=== PATIENT | male | born 1980 | race Hispanic/Latino ===

== ENCOUNTER 2017-11-14 15:48 | Inpatient (IN) | payer BC ==
[~2017-11-14] VITALS: Ht 175.3 cm; Wt 70.3 kg
[~2017-11-14 15:48] MED LIST: [UNRECOGNIZED DRUG - OTHER]
[2017-11-14 17:44] LABS: BASOPHILS % 0.4 % (0.0-1.0); EOSINOPHILS # (AUTO) 0.2 (0.0-0.4); EOSINOPHILS % 2.4 % (0.0-6.0); HEMATOCRIT 41.8 % (38.2-49.6); HEMOGLOBIN 14.3 g/dL (14.0-18.0); LYMPHOCYTES # (AUTO) 2.8 (1.0-3.2); LYMPHOCYTES % 37.3 % (18.0-39.1); MEAN CORPUSCULAR HEMOGLOBIN 27.3 pg (28-32); MEAN CORPUSCULAR HGB CONC 34.2 g/dL (31-35); MEAN CORPUSCULAR VOLUME 79.8 fL (81-99); MONOCYTES # (AUTO) 0.6 (0.2-0.8); MONOCYTES % 8.6 % (4.4-11.3); NEUTROPHILS # (AUTO) 3.8 (2.1-6.9); PLATELET COUNT 319 x10e3/uL (140-360); RED BLOOD COUNT 5.24 x10e6/uL (4.3-5.7); RED CELL DISTRIBUTION WIDTH 12.2 % (11.7-14.4)
[2017-11-14 18:00] LABS: ALANINE AMINOTRANSFERASE 256 IU/L (0-55); ALBUMIN/GLOBULIN RATIO 0.6 (0.8-2.0); ALKALINE PHOSPHATASE 275 IU/L (40-150); BLOOD UREA NITROGEN 14 mg/dL (7-26); BUN/CREATININE RATIO 14 (6-25); CALCIUM 9.7 mg/dL (8.4-10.2); CARBON DIOXIDE 27 mmol/L (22-29); CHLORIDE 105 mmol/L (98-107); EST GLOMERULAR FILTRATION RATE > 60 ML/MIN (60-); GLUCOSE 166 mg/dL (74-118); SODIUM 140 mmol/L (136-145)
--- NOTE | 2017-11-14 18:13 | Diagnostic Imaging Report ---
PROCEDURE:X-RAY RIGHT FOOT, COMPLETE COMPARISON:None. INDICATIONS:RIGHT FOURTH TOE INFECTION FINDINGS: Normal mineralization. No acute displaced fracture or dislocation. Mild cortical irregularity at the tuft of the distal phalanx of the fourth toe with moderate soft tissue swelling and distal fourth toe soft tissue lucency.. Other bony structures and cortical surfaces are intact. Vascular calcifications. No osteochondral lesion. CONCLUSION: Findings likely represent osteomyelitis involving the tuft of the distal phalanx of the fourth toe. Associated soft tissue swelling. Distal fourth toe soft tissue lucency may represent soft tissue gas. Kee Nazario M.D. Dictated by: Kee Nazario M.D. on 11/14/2017 at 18:14 Electronically approved by: Kee Nazario M.D. on 11/14/2017 at 18:14
[2017-11-14] MEDS ORDERED: HYDROCODONE/APAP 5MG-325MG TAB PO PRN (19:15)
[2017-11-14] MEDS ORDERED: MORPHINE SULFATE 2 MG/ML SYR IV PRN (19:15)
[2017-11-14] MEDS ORDERED: DEXTROSE 50% SYRINGE 50 ML IV PRN (19:15)
--- OUTSIDE RECORDS SUMMARY | 2017-11-14 20:42 | XMS REPORT ---
Author Author [facility] Address Unknown Phone Unavailable Care Team Providers Care Mail Machine Operator Name Role Phone NLEY FORREST Unavailable Unavailable Problems This patient has no known problems. Allergies, Adverse Reactions, Alerts This patient has no known allergies or adverse reactions. Medications This patient has no known medications. Results Test Description Test Time Test Comments Text Results Atomic Results Result Comments FOOT RIGHT COMPLETE [place] [address] Patient Name: MILTON HECK JR MR #: [id number] : 1980 Age/Sex: 37/M Req #: [id number] Adm Physician: Ordered by: VINNY JENNINGS GLOVE PRINTER Report # : [id number] Location: ER Room/Bed: Procedure: 0501 [id number] DX/FOOT RIGHT COMPLETE Exam Date: 11/14/17 Exam Time: 1711 REPORT STATUS: Signed PROCEDURE: X-RAY RIGHT FOOT, COMPLETE COMPARISON: None. INDICATIONS: RIGHT FOURTH TOE INFECTION FINDINGS: Normal mineralization. No acute displaced fracture or dislocation. Mild cortical irregularity at the tuft of the distal phalanx of the fourth toe with moderate soft tissue swelling and distal fourth toe soft tissue lucency.. Other bony structures and cortical surfaces are intact. Vascular calcifications. No osteochondral lesion. CONCLUSION: Findings likely represent osteomyelitis involving the tuft of the distal phalanx of the fourth toe. Associated soft tissue swelling. Distal fourth toe soft tissue lucency may represent soft tissue gas. Misa Nazario M.D. Dictated by: Misa Nazario M.D. on 11/14/2017 at 18:14 Electronically approved by: Misa Nazario M.D. on 11/14/2017 at 18:14 Dictated By: MISA NAZARIO MD 13 Transcribed By: JOHN on 11/14/171813 COPY TO: VINNY JENNINGS NP
[2017-11-14] MEDS: INSULIN REGULAR, HUMAN 100 UNIT/1 ML 3ML VIAL SQ SCH (20:50)
[2017-11-14] MEDS: VANCOMYCIN 1GM/NS 250 ML 250 ML IV SCH (20:50)
[2017-11-14] MEDS: PIPER-TAZ 3.375 GM 50 ML IV SCH (22:23)
[2017-11-15] MEDS: PIPER-TAZ 3.375 GM 50 ML IV SCH ×2 (05:40→11:40)
[2017-11-15] MEDS ORDERED: HUMALOG100 UNIT/1 SQ (07:04)
[2017-11-15] MEDS ORDERED: TOUJEO SQ (07:04)
[2017-11-15] MEDS: FAMOTIDINE 20 MG TAB PO SCH ×2 (07:47→17:25)
[2017-11-15] MEDS: INSULIN REGULAR, HUMAN 100 UNIT/1 ML 3ML VIAL SQ SCH ×2 (07:47→11:35)
--- NOTE | 2017-11-15 07:53 | History and Physical ---
PRIMARY CARE PHYSICIAN: Dr. Stapleton HEMATOLOGY NURSE: Dr. Rodriguez CHIEF COMPLAINT: Right foot 4th toe swelling, pain and redness. 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 Sent to the hospital by Dr. Rodriguez. X-rays shows signs of osteomyelitis. He is admitted for further evaluation and management. 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 Could be strep osteomyelitis. PAST SURGICAL HISTORY: Left foot 4th digit amputation, status post osteomyelitis. He has an insulin pump. ALLERGIES: PER ELECTRONIC MEDICAL RECORD. FAMILY HISTORY: Diabetes. SOCIAL HISTORY: Patient is . He has 2 children. Denies any alcohol or cigarettes. 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 MEDICATIONS: Per electronic medical records. REVIEW OF SYSTEMS: Denies any dizziness or chest pain. PHYSICAL EXAMINATION VITAL SIGNS: Reviewed. GENERAL: A tired-appearing man resting in bed. HEENT: Anicteric. Pupils respond to light. No oral lesions. CARDIOVASCULAR: Normal S1 and S2. LUNGS: Moderate breath sounds. ABDOMEN: Soft, nontender and nondistended. EXTREMITIES: He has a left foot with 4th digit absent. He has a right foot with 4th digit edematous, tender, erythematous. SKIN: Dry. PSYCHIATRIC: Flat affect. NEUROLOGIC: Alert and oriented times 3. Moving all extremities. LABS: Reviewed. MEDICATIONS: Reviewed. ASSESSMENT AND PLAN: A 37-year-old man with: 1. Osteomyelitis of the right foot, 4th digit: He has elevated sed rate. Will start him on intravenous vancomycin and intravenous Zosyn. Dr. Rodriguez has been consulted. Will consult infectious disease. 2. Diabetes mellitus, type 1: He has an insulin pump. Will consult endocrinology. 3. Hyperlipidemia: Check lipid panel. 4. Foot pain: P.r.n. pain medications. 5. Transaminitis: Will obtain hepatitis panel. 6. Prophylaxis: Will use Lovenox and Pepcid. 7. Disposition: Follow up podiatry recommendations. Endocrinology consultation. Job#: [id number] RI
[2017-11-15] MEDS ORDERED: VANCOMYCIN 1GM/NS 250 ML 250 ML IV SCH (09:00)
[2017-11-15] MEDS: VANCOMYCIN 1GM/NS 250 ML 250 ML IV SCH ×2 (09:05→21:45)
[2017-11-15 09:23] LABS: CHOL/HDL RATIO 4.1 (3.9-4.7)
--- NOTE | 2017-11-15 09:55 | Consultation ---
DATE OF CONSULTATION: November 15, 2017 REASON FOR CONSULTATION: Cellulitis and possible osteomyelitis of 4th digit, right foot. HISTORY OF PRESENT ILLNESS: This is a pleasant, 37-year-old white male, who is very known to me from being my patient for 15-plus years, who presented to the office several weeks ago with a very swollen 4th toe, right foot. He had an ulceration to the distal aspect of the toe and it starting getting progressively worse. Patient started having some fever and chills. It was decided to be admitted for IV antibiotics and local wound care to try to salvage the toe. Since the patient has been in the hospital getting IV antibiotics, he has been feeling somewhat better, denying any history of fevers, chills and nausea. PAST MEDICAL HISTORY: Remarkable for insulin-dependent diabetes. SURGICAL HISTORY: Remarkable for amputation of 4th toe, left foot, and cholecystectomy. ALLERGIES: PATIENT DENIES. SOCIAL HISTORY: Denies any smoking, drinking or recreational drug use. Lives with his , has 2 kids. FAMILY HISTORY: Remarkable for diabetes. REVIEW OF SYSTEMS CARDIAC: Denies any palpitations or arrhythmias. RESPIRATORY: Denies any shortness of breath or productive cough. GASTROINTESTINAL: Denies any diarrhea or constipation. GENITOURINARY: Denies any problems voiding. VITALS: Afebrile. Pulse rate 95. Respirations 14. Blood pressure 121/87. O2 saturation 100%. LABS: Noted. White blood cell count 7.4, hemoglobin 14.3 with a platelet count of 319. PODIATRIC PHYSICAL EXAMINATION : Reveals the following: VASCULAR: Pedal pulses of both the dorsalis pedis and posterior tibial arteries are palpable. NEUROLOGICAL: A complete loss of protective sensation when utilizing [place]-Fer 5.07 monofilament wire. MUSCULOSKELETAL: Examination shows muscle mass to be symmetrical and muscle strength to be 5/5 to all muscle groups. DERMATOLOGICAL: Examination reveals an ascending streak to the dorsal aspect of the right lower extremity. Ulceration to the distal aspect of the 4th toe, right foot, with an ulcer to the dorsal aspect at the distal interphalangeal joint. X-RAYS: Possibly positive with osteomyelitic changes. ASSESSMENT: Grade 2/3 ulceration of right foot, cellulitis, possible osteomyelitis with diabetic neuropathy. PLAN: Will continue IV antibiotics and local wound care. Will continue to observe the toe. Patient understands if not responsive, he may need an amputation. Will treat conservatively for now. Job#: [id number] TOSIN
[2017-11-15 15:11] LABS: FREE T4 (FREE THYROXINE) 1.22 ng/dL (0.9-1.8); THYROID STIMULATING HORMONE 1.14 uIU/mL (0.350-4.940)
[2017-11-15] MEDS ORDERED: MORPHINE SULFATE 2 MG/ML SYR IV PRN (15:30)
[2017-11-15] MEDS ORDERED: HYDROCODONE/APAP 5MG-325MG TAB PO PRN (15:30)
--- NOTE | 2017-11-15 15:56 | Consultation ---
DATE OF CONSULTATION: November 15, 2017 INFECTIOUS DISEASE CONSULTATION ATTENDING PHYSICIAN: Dr. Rishi Tran REASON FOR CONSULTATION: Right toe osteomyelitis. Thank you, Dr. Tran, for asking me to see this patient. HISTORY: The patient is a 37-year-old man referred for right toe osteomyelitis. He presented to the emergency department with pain, redness and swelling of the right 4th toe. He denies fever and chills. He developed an ulcer of the right 4th toe about 2 weeks earlier. He wears tennis shoes and denies trauma. Plain x-ray of the right foot done in the emergency room showed mild cortical irregularity at the tuft of the distal phalanx of the 4th toe with moderate soft-tissue swelling and distal 4th toe soft-tissue swelling. PAST MEDICAL HISTORY: Diabetes mellitus type 1, hyperlipidemia, MRSA osteomyelitis of the right 3rd toe, and osteomyelitis of the left 4th toe. PAST SURGICAL HISTORY: Insulin pump placement and amputation of the left 4th toe. ALLERGIES: NO KNOWN DRUG ALLERGIES. MEDICATIONS: The current antibiotics are Zosyn 3.375 g IV piggyback q.6 h. and vancomycin 1 g IV piggyback q.12 h. IMMUNIZATIONS: The patient stated he received tetanus-diphtheria vaccine within 10 years. FAMILY HISTORY: Significant for diabetes mellitus. SOCIAL HISTORY: No alcohol or tobacco use. REVIEW OF SYSTEMS: As per history of present illness. The patient reports good pain control. PHYSICAL EXAMINATION GENERAL: No acute distress. VITAL SIGNS: T-max 98.7, pulse 95, respiratory rate 14, blood pressure 121/87. Weight 155 pounds. HEENT: Normocephalic. There is no icterus or injection of conjunctivae. There is no ear or nasal discharge. Moist oral mucosa. No pharyngeal erythema or exudate. NECK: Supple. No meningismus or lymphadenopathy. LUNGS: Clear to auscultation bilaterally. HEART: Normal S1 and S2, regular. ABDOMEN: Soft and nontender. EXTREMITIES: There is edema of the right 4th toe with ulcer at the distal phalanx. There are redness and serosanguineous discharge. The left 4th toe is absent. There is no edema, clubbing or cyanosis of the rest of the extremities. The dorsalis pedis and posterior tibial pulses are weak to palpation in both feet. SKIN: As per extremities. NUCLEAR MEDICINE TECHNICIAN: Awake, alert and oriented to person, place and time. There is decreased sensation on monofilament examination of the feet bilaterally. Nonfocal. LABORATORY: WBC 7470, hemoglobin 14.3, platelets 319,000, neutrophils 51, lymphs 37.3, monos 8.6, eosinophil 2.4, basophils 0.4. BUN 14, creatinine 1. AST 126, ALT 256, alk phos 275, total bilirubin 0.9. Hemoglobin A1c 13.1. Blood culture is pending. Wound culture is also pending. ESR is 63. IMPRESSION 1. Probable contiguous osteomyelitis of the distal phalanx of the right 4th toe complicating diabetic foot ulcer present on admission. 2. Transaminitis present on admission. The etiology is unclear at this time. 3. Diabetes mellitus, type 1, uncontrolled. PLAN 1. Check MRI of the right foot and arterial Doppler ultrasound of the right lower extremity. Also check C-reactive protein. 2. Pain control per internal medicine. 3. Podiatry input has been noted. Job#: [id number]
[2017-11-15 16:00] VITALS: BP 152/102
--- NOTE | 2017-11-15 16:03 | Consultation ---
DATE OF CONSULTATION: November 15, 2017 ENDOCRINE CONSULTATION This is a patient of Dr. Tran. Thank you very much for referring this patient. This is a 37-year-old gentleman who is referred to me for evaluation of diabetes mellitus. Patient reportedly has a known case of type 1 diabetes for almost 20 years and is being followed by Dr. Spencer Stapleton in the medical center. He came to the hospital because of the nonhealing ulcer of the right toe for possible osteomyelitis. Patient tells me that he takes Toujeo about 50 units at bedtime and Humalog about 10 to 15 with each meal depending upon the blood sugars. His last hemoglobin A1c in the hospital was around 13.1. Patient has multiple complications from diabetes including severe diabetic sensorimotor neuropathy. The patient tells me he is a nonsmoker. PHYSICAL EXAMINATION: GENERAL: Today the patient is alert, awake, a little bit apprehensive. He is very agitated and sometimes he hesitates in answering all the questions about his history. VITALS: His heart rate is around 78, blood pressure 130/80 mmHg. HEENT: Examination essentially unremarkable. Thyroid is palpable. Clinically he is near euthyroid. CHEST: Bilateral vesicular breathing. He has mild bronchospasm. CARDIAC: First and second heart sounds. There is a 3rd, 4th heart sound. Ejection systolic murmur soft, grade 3/6. Patient has evidence of diabetic sensory neuropathy in both lower extremities and an ulcer of the right toe. CLINICAL IMPRESSION 1. Diabetes mellitus type 1 uncontrolled with complications. 2. Osteo right foot, right toe. PLAN: At this time is to do A hemoglobin A1c, thyroid function test, monitor his blood sugars and adjust insulin dose. Since we do not have the Toujeo in the hospital will put him on the Levemir for now and continue the basal and bolus insulin therapy. Thanks for referring this patient. I will be following this patient with you. Job#: [id number] RANJIT LEE
[2017-11-15 16:20] VITALS: BP 150/100
--- NOTE | 2017-11-15 16:41 | Diagnostic Imaging Report ---
TECHNIQUE: Magnetic resonance imaging of the RIGHT foot (forefoot) was performed WITHOUT injected contrast. HISTORY: Diabetic foot ulcer, worrisome for osteomyelitis, fourth digit, blister COMPARISON: None available. DISCUSSION: Bone: Mild bone marrow edema and decreased fatty marrow signal of the fourth middle and distal phalanges. The amount of bone marrow edema is relatively mild. Incidentally, focal sclerosis within both hallux sesamoids, may reflect mild chronic changes of previous avascular necrosis. Joints: Trace effusions of the first metatarsophalangeal joint and second metatarsophalangeal joint. Mild scattered degenerative changes, most notably the first metatarsophalangeal joint. Soft Tissues: Moderate nonspecific diffuse soft tissue edema. No drainable fluid collection. Apparent soft tissue defect at the distal aspect of the fourth toe. IMPRESSION: 1. Findings compatible with osteomyelitis involving the middle and distal phalanges of the fourth digit, consider chronic or acute on chronic osteomyelitis. 2. No soft tissue abscess. Signed by: Dr. Abhijit Vaz D.O., M.M.M. on 11/15/2017 4:38 PM
[2017-11-15] MEDS: ENOXAPARIN SOD INJ 40 MG/0.4 ML SYR SC SCH (17:25)
[2017-11-15] MEDS: PIPER-TAZ 3.375 GM 100 ML IV SCH (17:33)
[2017-11-15] MEDS: INSULIN LISPRO 100 UNIT/1 ML 3ML VIAL SQ SCH ×3 (17:34→21:45)
[2017-11-15 20:31] VITALS: BP 143/90
[2017-11-15] MEDS ORDERED: INSULIN DETEMIR 100 UNIT/ML PEN SQ SCH (21:00)
[2017-11-16] VITALS: BP 117/75
[2017-11-16] MEDS: PIPER-TAZ 3.375 GM 100 ML IV SCH ×5 (00:48→17:28)
[2017-11-16 06:44] LABS: ALANINE AMINOTRANSFERASE 174 IU/L (0-55); ALBUMIN 2.7 g/dL (3.5-5.0); ALBUMIN/GLOBULIN RATIO 0.7 (0.8-2.0); ALKALINE PHOSPHATASE 253 IU/L (40-150); ANION GAP 12.8 mmol/L (8-16); BLOOD UREA NITROGEN 20 mg/dL (7-26); BUN/CREATININE RATIO 16 (6-25); CALCIUM 9.4 mg/dL (8.4-10.2); CARBON DIOXIDE 29 mmol/L (22-29); CHLORIDE 104 mmol/L (98-107); CREATININE, SERUM 1.22 mg/dL (0.72-1.25); EST GLOMERULAR FILTRATION RATE > 60 ML/MIN (60-); GLUCOSE 316 mg/dL (74-118); POTASSIUM 4.8 mmol/L (3.5-5.1); SODIUM 141 mmol/L (136-145)
[2017-11-16 08:00] VITALS: BP 148/99
[2017-11-16] MEDS: FAMOTIDINE 20 MG TAB PO SCH ×2 (08:00→17:00)
[2017-11-16] MEDS: VANCOMYCIN 1GM/NS 250 ML 250 ML IV SCH ×2 (08:00→22:00)
[2017-11-16] MEDS: INSULIN LISPRO 100 UNIT/1 ML 3ML VIAL SQ SCH ×6 (08:00→21:15)
--- NOTE | 2017-11-16 08:36 | Progress Note ---
DATE: November 16, 2017 SUBJECTIVE: Patient doing better. Denies any history of fever, chills, nausea, vomiting. OBJECTIVE: VITAL SIGNS: Afebrile. Pulse rate 93, respiration 18, blood pressure 117/75, O2 saturation 96%. LABS: White blood cell count of 7.4. Still a very swollen fourth toe, right foot when compared to left, but getting better since he has been on IV antibiotics. Has drainage to distal aspect of the fourth digit, right foot. Some pus with minimal smell. Has an ulceration to the medial aspect of the fourth digit, left foot measuring less than 1 cm in diameter. ASSESSMENT: Possible osteomyelitis, cellulitis with grade 2 ulcerations. PLAN: Will continue IV antibiotics, continue to let the foot demarcate, seems to be getting better. Patient is aware still that there is a chance of possibly losing the toe. Will try to salvage. Job#: [id number]
--- NOTE | 2017-11-16 09:01 | Progress Note ---
DATE: November 16, 2017 TIME: 8:25 a.m. OVERNIGHT: No events. REVIEW OF SYSTEMS: Denies any dizziness. PHYSICAL EXAMINATION VITAL SIGNS: Reviewed. GENERAL: A tired-appearing man resting in bed. HEENT: Anicteric. CARDIOVASCULAR: Normal S1 and S2. LUNGS: Moderate breath sounds. ABDOMEN: Soft, nontender and nondistended. EXTREMITIES: Left foot 4th digit absent. Right foot 4th digit edematous, tender and erythematous. SKIN: Dry. PSYCHIATRIC: Flat affect. NEUROLOGICAL: Alert and oriented times 3. LABS: Reviewed. MEDICATIONS: Reviewed. ASSESSMENT: A 37-year-old man with: 1. Osteomyelitis of the right foot, 4th digit. 2. Diabetes mellitus, type 1. 3. Hyperlipidemia. 4. Foot pain. 5. Transaminitis. PLAN 1. Continue IV Zosyn and IV vancomycin. 2. Continue insulin regimen per endocrinology. 3. Continue pain control. 4. Continue Lovenox prophylactically. 5. Follow up cultures. Job#: [id number] PA
[2017-11-16 12:00] VITALS: BP 136/90
--- NOTE | 2017-11-16 12:57 | Cardiology Report ---
DATE OF STUDY: November 15, 2017 DOPPLER SCAN OF RIGHT LEG ARTERIES The right leg arteries were interrogated using the duplex scanning method. The waveforms were all biphasic and triphasic above the knee. In the posterior tibial artery and anterior tibial artery, the waveforms were monophasic and biphasic. Velocity was slightly increased in the mid right anterior tibial artery at 1.8 meters per second suggestive of stenosis. CONCLUSIONS 1. Possible moderate stenosis involving the mid portion of the right anterior tibial artery with biphasic and monophasic waveforms and velocity of 1.8 meters per second. 2. Possible mild stenosis involving the right anterior and posterior tibial arteries with waveforms predominantly biphasic and monophasic. 3. No evidence of significant disease in the right leg above the right knee. 4. The left leg was not studied. Job#: [id number] cc:KELLY NORMAN MD
[2017-11-16 16:00] VITALS: BP 139/85
[2017-11-16] MEDS ORDERED: INSULIN LISPRO 100 UNIT/1 ML 3ML VIAL SQ SCH (16:30)
[2017-11-16] MEDS: ENOXAPARIN SOD INJ 40 MG/0.4 ML SYR SC SCH (17:28)
[2017-11-16 20:00] VITALS: BP 149/103
[2017-11-16] MEDS ORDERED: INSULIN DETEMIR 100 UNIT/ML PEN SQ SCH (21:00)
[2017-11-17] VITALS (7 sets, daily range): BP systolic 101–126; BP diastolic 70–99
[2017-11-17] MEDS: PIPER-TAZ 3.375 GM 100 ML IV SCH ×4 (02:25→22:30)
--- NOTE | 2017-11-17 07:35 | Progress Note ---
DATE: November 17, 2017 SUBJECTIVE: Patient is doing somewhat better. Denies any issues of fever, chills, nausea, or vomiting. Decreased swelling to the right lower extremity. OBJECTIVE VITAL SIGNS: Afebrile, pulse rate 89, respirations 18, blood pressure 114/80, O2 saturation 97%. EXTREMITIES: Still some swelling noted to the right 4th toe, but getting better. Color is starting to be symmetrical to the adjacent toes. Still some moderate to severe swelling noted when compared to adjacent toes. Ulcerations to the distal aspect of the right great toe and dorsal aspect of the distal interphalangeal joint seem to be healing. ASSESSMENT: Possible osteomyelitis with grade 2/3 ulceration. PLAN: Will continue IV antibiotics for 2-3 more days. If the patient continues to improve, the patient will be discharged possibly on Monday. If no improvement, may end up needing amputation. Job#: [id number] ARABELLA
[2017-11-17] MEDS: INSULIN LISPRO 100 UNIT/1 ML 3ML VIAL SQ SCH ×7 (08:10→21:24)
[2017-11-17] MEDS: FAMOTIDINE 20 MG TAB PO SCH ×2 (08:10→17:07)
[2017-11-17] MEDS: VANCOMYCIN 1GM/NS 250 ML 250 ML IV SCH ×2 (08:10→21:14)
[2017-11-17] MEDS: ENOXAPARIN SOD INJ 40 MG/0.4 ML SYR SC SCH (17:07)
[2017-11-17] MEDS ORDERED: INSULIN DETEMIR 100 UNIT/ML PEN SQ SCH (21:00)
[2017-11-18] VITALS: BP 125/75
--- NOTE | 2017-11-18 00:13 | Progress Note ---
DATE: November 17, 2017 TIME: 7:15 a.m. OVERNIGHT: No events. REVIEW OF SYSTEMS: Denies any dizziness. PHYSICAL EXAMINATION: VITAL SIGNS: Reviewed. GENERAL APPEARANCE: Tired-appearing man resting in bed. HEENT: Anicteric. CARDIOVASCULAR: Normal S1 and S2. LUNGS: Moderate breath sounds. ABDOMEN: Soft, nontender, nondistended. EXTREMITIES: Right foot fourth digit edematous, but less compared to previously. Erythema is also improving. SKIN: Dry. PSYCHIATRIC: Flat affect. NEUROLOGICAL: Alert and oriented x3. LABS: Reviewed. MEDICATIONS: Reviewed. ASSESSMENT: A 37-year-old man. 1. Osteomyelitis to the fourth digit on the right foot. 2. Diabetes mellitus type 1. 3. Hyperlipidemia. 4. Foot pain. 5. Transaminitis. PLAN: 1. Continue IV antibiotics. 2. Continue insulin regimen per endocrinology. 3. Continue Lovenox prophylactically. 4. MRI of the foot does confirm osteomyelitis with Streptococcus viridans and coagulase-negative Staphylococcus. 5. Continue intravenous Zosyn. 6. Obtain labs tomorrow. 7. Hemoglobin A1c was 13.1 and LDL 104, triglyceride 154. 8. Vancomycin trough therapeutic at 11.8. Job#: [id number]
[2017-11-18] MEDS: PIPER-TAZ 3.375 GM 100 ML IV SCH ×4 (03:15→22:45)
[2017-11-18 04:00] VITALS: BP 122/81
[2017-11-18 06:22] LABS: BASOPHILS % 0.7 % (0.0-1.0); EOSINOPHILS # (AUTO) 0.2 (0.0-0.4); EOSINOPHILS % 3.8 % (0.0-6.0); HEMATOCRIT 41.3 % (38.2-49.6); HEMOGLOBIN 13.9 g/dL (14.0-18.0); LYMPHOCYTES # (AUTO) 2.2 (1.0-3.2); LYMPHOCYTES % 35.5 % (18.0-39.1); MEAN CORPUSCULAR HEMOGLOBIN 27.4 pg (28-32); MEAN CORPUSCULAR HGB CONC 33.7 g/dL (31-35); MEAN CORPUSCULAR VOLUME 81.5 fL (81-99); MONOCYTES # (AUTO) 0.5 (0.2-0.8); MONOCYTES % 8.1 % (4.4-11.3); NEUTROPHILS # (AUTO) 3.1 (2.1-6.9); NEUTROPHILS % 51.7 % (38.7-80.0); PLATELET COUNT 315 x10e3/uL (140-360); RED BLOOD COUNT 5.07 x10e6/uL (4.3-5.7); RED CELL DISTRIBUTION WIDTH 12.3 % (11.7-14.4)
[2017-11-18 06:41] LABS: ANION GAP 10.4 mmol/L (8-16); CALCIUM 9.1 mg/dL (8.4-10.2); CREATININE, SERUM 1.32 mg/dL (0.72-1.25); POTASSIUM 4.4 mmol/L (3.5-5.1)
[2017-11-18] MEDS: INSULIN LISPRO 100 UNIT/1 ML 3ML VIAL SQ SCH ×7 (07:30→21:00)
[2017-11-18] MEDS: FAMOTIDINE 20 MG TAB PO SCH ×2 (07:30→16:30)
[2017-11-18 08:00] VITALS: BP_SYST 118; BP_SYST 122; BP_DIAS 80; BP_DIAS 81
[2017-11-18] MEDS: VANCOMYCIN 1GM/NS 250 ML 250 ML IV SCH ×2 (09:00→20:45)
[2017-11-18 12:00] VITALS: BP 118/78
[2017-11-18 16:00] VITALS: BP 112/67
[2017-11-18] MEDS: ENOXAPARIN SOD INJ 40 MG/0.4 ML SYR SC SCH (17:00)
--- NOTE | 2017-11-18 17:01 | Progress Note ---
DATE: November 18, 2017 SUBJECTIVE: Patient is seen at bedside, doing better. Denies any history of fever, chills, nausea, or vomiting. OBJECTIVE VITAL SIGNS: Afebrile, pulse rate 97, respirations 20, blood pressure 118/78, O2 saturation 96%. SKIN: Ulceration getting smaller. Toe starting to respond to the IV antibiotics. Still some swelling, but decreasing. ASSESSMENT: There is osteomyelitis to the middle and distal phalanxes of the 4th digit according to the MRI reports. PLAN: Will need IV antibiotics for at least couple more weeks. Continue local wound care. Job#: [id number] CHAITANYA
--- NOTE | 2017-11-18 17:37 | Progress Note ---
DATE: November 18, 2017 PROGRESS NOTE TIME: 1630. OVERNIGHT: No acute events. REVIEW OF SYSTEMS: Denies chest pain, shortness of breath, nausea, vomiting, diarrhea, dizziness, or headache. PHYSICAL EXAMINATION VITAL SIGNS: This morning, temperature 96.2, pulse 97, respirations 20, blood pressure 118/78, and pulse ox 96%. GENERAL APPEARANCE: This is a tired-appearing man, resting quietly in bed. HEENT: Normocephalic. No sinus tenderness. Oral mucosa moist and intact. CARDIOVASCULAR: S1 and S2 auscultated with no clicks, murmurs, or rubs. LUNGS: Bilateral breath sounds are clear to auscultation in all reis. ABDOMEN: Soft, nontender, and not distended. EXTREMITIES: Moves all extremities. Right foot with gauze dressing. SKIN: Warm to touch with minimal erythema. Skin is dry. PSYCHIATRIC: Normal affect. NEUROLOGICAL: Alert and oriented x3 with gross motor function intact. LABS: WBCs are 6.06, hemoglobin and hematocrit are 13.9 and 41.3 with platelets of 315. Chemistries: Sodium 139, potassium 4.4, chloride 101, CO2 32, gap 10.4, BUN 22, and creatinine 1.32 with POC glucose ranging from 254 to 175. MEDICATIONS 1. Lispro insulin a.c. and at bedtime. 2. Zosyn q. 6 hours IV. 3. Vancomycin q. 12 hours IV. 4. Pepcid 20 mg b.i.d. 5. Lovenox 40 mg subcu FIP. 6. Lispro 14 units a.c. 7. Levemir 24 units subcu at bedtime. 8. P.r.n. D50. ASSESSMENT AND PLAN: This is a 37-year-old man with; 1. Osteomyelitis to the 4th digit on the right foot, continue IV antibiotics as above. 2. Diabetes mellitus type 1, insulin regimen per endocrine. 3. Hyperlipidemia, initiate statin when discharged or as outpatient. 4. Foot pain, p.r.n. pain medications. 5. Transaminitis, follow up as an outpatient. 6. Prophylaxis, Lovenox and Pepcid as above. 7. Disposition: Continue IV antibiotics. Follow up endocrine consult. Podiatry assessment pending for intervention versus discharge on Monday per chart review. Dictated by Ranjit Dhaliwal NP Job#: [id number] FATMATA
[2017-11-18 20:00] VITALS: BP 120/82
[2017-11-18] MEDS ORDERED: INSULIN DETEMIR 100 UNIT/ML PEN SQ SCH (21:00)
[2017-11-19] VITALS (8 sets, daily range): BP systolic 131–157; BP diastolic 78–105
[2017-11-19] MEDS: PIPER-TAZ 3.375 GM 100 ML IV SCH ×4 (04:30→20:11)
[2017-11-19] MEDS: FAMOTIDINE 20 MG TAB PO SCH ×2 (07:45→16:56)
[2017-11-19] MEDS: INSULIN LISPRO 100 UNIT/1 ML 3ML VIAL SQ SCH ×7 (07:54→21:00)
[2017-11-19] MEDS: VANCOMYCIN 1GM/NS 250 ML 250 ML IV SCH ×2 (09:22→21:15)
--- NOTE | 2017-11-19 12:53 | Progress Note ---
DATE: November 19, 2017 TIME: 12 noon. OVERNIGHT: No acute events. REVIEW OF SYSTEMS: Denies chest pain, shortness of breath, nausea, vomiting, diarrhea, dizziness, or headache. PHYSICAL EXAMINATION VITAL SIGNS: Temperature 97.3, pulse 93, respirations 18, BP 157/105, ranging from systolic of 157 to 112 over the last 24 hours. Pulse ox is 97% on room air. GENERAL APPEARANCE: This is a tired-appearing man, resting quietly in bed. HEAD, EYES, EARS, NOSE AND THROAT: Normocephalic without sinus tenderness upon palpation. Oral mucosa moist and intact. CARDIOVASCULAR: S1 and S2 auscultated without clicks, murmurs, or rubs appreciated. LUNGS: Bilateral breath sounds are clear to auscultation in all reis with good excursion. ABDOMEN: Soft, nontender, and not distended. EXTREMITIES: Moves all extremities. Right foot with gauze dressing. Extremity skin is warm and dry to touch. SKIN: Dry. PSYCHIATRIC: Normal affect. NEURO: Alert and oriented x3. No sensory deficits. LABS: Reviewed. Point of care glucose ranging from 254 to 162 over the last 24 hours. MEDICATIONS 1. IV vancomycin q.12 h. 2. Zosyn q.6 h. IV. 3. Sliding scale lispro. 4. Pepcid 20 mg b.i.d. a.c. meals. 5. Lovenox 40 mg subcutaneous at 1700. 6. Human lispro 16 units a.c. and nightly. 7. Levemir 28 units nightly. 8. P.R.N. D50. ASSESSMENT AND PLAN: This is a 37-year-old man with: 1. Osteomyelitis of the 4th digit on the right foot. Continue IV antibiotics as above per infectious disease recommendations. 2. Diabetes mellitus, type 1. Insulin regimen per endocrine services. 3. Hyperlipidemia. Initiate statin when discharged or as outpatient. 4. Foot pain, p.r.n. pain medications. 5. Transaminitis. Follow up as an outpatient. 6. Prophylaxis: Lovenox and Pepcid as above. 7. Disposition: Continue IV antibiotics. Follow up with endocrine's recommendations. Podiatry assessment pending for intervention versus continued IV therapy versus discharge tomorrow per chart review. Dictated by Ranjit Dhaliwal NP Job#: [id number] MH
[2017-11-19] MEDS ORDERED: INSULIN LISPRO 100 UNIT/1 ML 3ML VIAL SQ SCH (16:30)
[2017-11-19] MEDS: ENOXAPARIN SOD INJ 40 MG/0.4 ML SYR SC SCH (16:56)
[2017-11-19] MEDS ORDERED: HYDROCODONE/APAP 5MG-325MG TAB PO PRN (18:00)
--- NOTE | 2017-11-19 18:33 | Progress Note ---
DATE: November 19, 2017 SUBJECTIVE: Patient seen at bedside accompanied by family members. Having some pain to the right lower extremity, specifically the 4th digit, right foot. OBJECTIVE: Vital signs: Afebrile. Pulse rate 95, respirations 19, blood pressure 134/88, O2 saturation 96%. Ulcerations are healing. Still positive cellulitis. Pedal pulses are palpable. LABS: Noted. Has a white blood cell count 6.06. Still has a lot of swelling to the 4th digit, right foot, when compared to adjacent toes. MRI came back positive for osteomyelitis to the middle and distal phalanx. ASSESSMENT: Osteomyelitis, 4th toe, right foot, with multiple grade-2 ulcerations. PLAN: Will continue local wound care. Continue IV antibiotics. Patient will need at least a couple more weeks of IV antibiotics. Will continue to monitor. Patient aware of possible amputation if not responsive. Job#: [id number]
[2017-11-19] MEDS ORDERED: SODIUM CHLORIDE 0.9% 250ML 250 ML ONE (20:07)
[2017-11-19] MEDS: INSULIN DETEMIR 100 UNIT/ML PEN SQ SCH (21:00)
[2017-11-20 01:21] VITALS: BP 164/93
[2017-11-20] MEDS: PIPER-TAZ 3.375 GM 100 ML IV SCH ×4 (03:02→20:27)
[2017-11-20 05:52] VITALS: BP 129/79
[2017-11-20 07:37] LABS: ANION GAP 10.2 mmol/L (8-16); BLOOD UREA NITROGEN 22 mg/dL (7-26); BUN/CREATININE RATIO 17 (6-25); CALCIUM 8.9 mg/dL (8.4-10.2); CARBON DIOXIDE 28 mmol/L (22-29); CHLORIDE 105 mmol/L (98-107); CREATININE, SERUM 1.27 mg/dL (0.72-1.25); EST GLOMERULAR FILTRATION RATE > 60 ML/MIN (60-); GLUCOSE 342 mg/dL (74-118); POTASSIUM 4.2 mmol/L (3.5-5.1); SODIUM 139 mmol/L (136-145)
[2017-11-20 08:00] VITALS: BP 139/93
[2017-11-20] MEDS: INSULIN LISPRO 100 UNIT/1 ML 3ML VIAL SQ SCH ×7 (08:00→21:45)
--- NOTE | 2017-11-20 08:11 | Progress Note ---
DATE: November 20, 2017 TIME: 7:40 a.m. OVERNIGHT: No events. REVIEW OF SYSTEMS: Denies any dizziness. VITAL SIGNS: Reviewed. PHYSICAL EXAMINATION GENERAL: A tired-appearing man, resting in bed. HEENT: Anicteric. Pupils respond to light. No oral lesions. CARDIOVASCULAR: Normal S1 and S2. LUNGS: Moderate breath sounds. ABDOMEN: Soft, nontender, and not distended. EXTREMITIES: Left foot 4th digit absent. Right foot 4th digit is less edematous, less erythema, less tenderness. SKIN: Dry. PSYCHIATRIC: Flat affect. LABS: Reviewed. MEDICATIONS: Reviewed. ASSESSMENT: A 37-year-old man. 1. Osteomyelitis with Streptococcus viridans and coagulase-negative staphylococcus of the 4th digit, right foot. 2. Diabetes mellitus, type 1. Hemoglobin A1c 13.1, LDL 104, triglycerides 154. 3. Hyperlipidemia. 4. Foot pain. 5. Transaminitis. 6. C-reactive protein and sedimentation rate elevated. PLAN 1. Continue IV vancomycin and IV Zosyn. 2. Continue insulin regimen and glucose control. 3. Continue Lovenox prophylactically with Pepcid. 4. Await podiatry re-evaluation. 5. Discharge planning. Job#: [id number]
[2017-11-20] MEDS: FAMOTIDINE 20 MG TAB PO SCH ×2 (08:30→17:38)
[2017-11-20] MEDS: VANCOMYCIN 1GM/NS 250 ML 250 ML IV SCH ×2 (09:06→21:45)
--- NOTE | 2017-11-20 09:40 | Progress Note ---
DATE: November 20, 2017 SUBJECTIVE: Patient was seen at bedside. Doing better. Still having some pain to the right lower extremity. OBJECTIVE VITAL SIGNS: Afebrile, pulse rate 92, respirations 18, blood pressure 129/79, O2 saturation 95% . EXTREMITIES: The 4th toe looking somewhat better. Starting to get symmetrical coloration to adjacent toes and foot. Still very swollen when compared to adjacent toes. Ulcerations healing. There is decreased drainage and no purulence noted at this time when squeezing the toe. ASSESSMENT: Osteomyelitis, 4th toe, right foot with grade 2 ulcers, healing. PLAN: Will continue IV antibiotics for a couple more weeks. Continue local wound care. Try to salvage the toe. So far, responding. Will continue to follow. Job#: [id number] [place]
[2017-11-20 12:00] VITALS: BP 105/76
[2017-11-20 16:00] VITALS: BP 134/87
[2017-11-20] MEDS: ENOXAPARIN SOD INJ 40 MG/0.4 ML SYR SC SCH (17:38)
[2017-11-20 20:00] VITALS: BP 123/90
[2017-11-20] MEDS: INSULIN DETEMIR 100 UNIT/ML PEN SQ SCH (21:45)
[2017-11-21] MEDS: PIPER-TAZ 3.375 GM 100 ML IV SCH ×4 (03:30→21:40)
[2017-11-21 08:00] VITALS: BP 113/74
[2017-11-21] MEDS: FAMOTIDINE 20 MG TAB PO SCH ×2 (08:00→17:21)
[2017-11-21] MEDS: INSULIN LISPRO 100 UNIT/1 ML 3ML VIAL SQ SCH ×7 (08:00→21:00)
[2017-11-21] MEDS: VANCOMYCIN 1GM/NS 250 ML 250 ML IV SCH (08:30)
--- NOTE | 2017-11-21 08:58 | Progress Note ---
DATE: November 21, 2017 SUBJECTIVE: Patient seen at bedside, doing better. Decreased pain to the right lower extremity. OBJECTIVE: VITAL SIGNS: Afebrile. Vital signs stable. EXTREMITIES: Swollen fourth digit, right foot is getting better by the day since he has been getting his IV antibiotics. Ulcerations to the distal aspect and medial aspect of fourth digit are healing. Negative purulent drainage upon squeezing the toe on this day. ASSESSMENT: Osteomyelitis, diabetic neuropathy with multiple grade 2 ulcerations, right fourth toe. PLAN: Will continue IV antibiotics. Patient seems to be responding to conservative treatment. Continue local wound care. Will continue to follow. Continue offloading. Job#: [id number]
--- NOTE | 2017-11-21 10:36 | Progress Note ---
DATE: November 21, 2017 TIME: 7:15 a.m. OVERNIGHT: No events. REVIEW OF SYSTEMS: Denies any dizziness. VITAL SIGNS: Reviewed. PHYSICAL EXAMINATION GENERAL: A tired-appearing man, resting in bed. HEENT: Anicteric. CARDIOVASCULAR: Normal S1 and S2. LUNGS: Moderate breath sounds. ABDOMEN: Soft, nontender, and nondistended. EXTREMITIES: Left foot has absent 4th digit. Right foot 4th digit has less erythema, edema and tenderness. SKIN: Dry. PSYCHIATRIC: Flat affect. LABS: Reviewed. MEDICATIONS: Reviewed. ASSESSMENT: This is a 37-year-old man. 1. Osteomyelitis with Streptococcus viridans and coagulase-negative staphylococcus of the 4th digit, right foot. 2. Diabetes mellitus, type 1. Hemoglobin A1c 13.1, LDL 104, triglycerides 154. 3. Hyperlipidemia. 4. Foot pain. 5. Transaminitis. 6. C-reactive protein and sedimentation rate elevated. PLAN 1. Continue IV antibiotics. 2. Continue glucose control. 3. Obtain consult with pain management. 4. ID evaluation for IV antibiotics. 5. He will likely need a PICC line for home use. I will discuss with infectious disease. Job#: [id number]
[2017-11-21 12:00] VITALS: BP 138/86
[2017-11-21 16:00] VITALS: BP 146/82
[2017-11-21] MEDS: ENOXAPARIN SOD INJ 40 MG/0.4 ML SYR SC SCH (17:21)
[2017-11-21 20:00] VITALS: BP 147/98
[2017-11-21 20:20] VITALS: BP 147/98
[2017-11-21] MEDS: INSULIN DETEMIR 100 UNIT/ML PEN SQ SCH (21:40)
[2017-11-22] VITALS (9 sets, daily range): BP systolic 105–130; BP diastolic 56–89
[2017-11-22] MEDS: PIPER-TAZ 3.375 GM 100 ML IV SCH ×3 (02:32→15:22)
--- NOTE | 2017-11-22 07:32 | Progress Note ---
DATE: November 22, 2017 TIME: 7 a.m. OVERNIGHT: No events. REVIEW OF SYSTEMS: Denies any dizziness. PHYSICAL EXAMINATION VITAL SIGNS: Reviewed. GENERAL: A tired-appearing man resting in bed. HEENT: Anicteric. CARDIOVASCULAR: Normal S1 and S2. LUNGS: Moderate breath sounds. ABDOMEN: Soft, nontender and nondistended. EXTREMITIES: He has left 4th digit absent and right 4th digit with less erythema, edema and tenderness. SKIN: Dry. PSYCHIATRIC: Flat affect. LABS: Reviewed. MEDICATIONS: Reviewed. ASSESSMENT: A 37-year-old man with: 1. Osteomyelitis with Streptococcus viridans and coagulase-negative staph of the 4th digit of the right foot. 2. Diabetes mellitus, type 1: Hemoglobin A1c 13.1, LDL 104 and triglycerides 154. 3. Hyperlipidemia. 4. Foot pain. 5. Transaminitis. 6. C-reactive protein and sed rate elevated. PLAN 1. Continue antibiotics. Would benefit from continued IV antibiotics in a skilled facility. 2. Continue IV Zosyn. 3. Continue Lovenox and Pepcid. 4. Discharge planning. Skilled facility to evaluate. Job#: [id number] [place]
[2017-11-22] MEDS: FAMOTIDINE 20 MG TAB PO SCH ×2 (08:34→17:45)
[2017-11-22] MEDS: INSULIN LISPRO 100 UNIT/1 ML 3ML VIAL SQ SCH ×7 (08:36→21:00)
--- NOTE | 2017-11-22 09:15 | Progress Note ---
DATE: November 22, 2017 SUBJECTIVE: Patient seen at bedside. Feeling better. Denies any history of fever, chills, nausea or vomiting. OBJECTIVE: Afebrile. Vital signs stable. Ulcers continue to improve. Decreased swelling to the 4th digit right foot. There is negative purulent drainage upon squeezing the toe. ASSESSMENT 1. Osteomyelitis, 4th toe. 2. Cellulitis. 3. Grade-2 ulcer, healing. PLAN: Will continue IV antibiotics. Continue local wound care. Continue offloading. Job#: [id number]
[2017-11-22] MEDS: ENOXAPARIN SOD INJ 40 MG/0.4 ML SYR SC SCH (17:45)
[2017-11-22] MEDS: INSULIN DETEMIR 100 UNIT/ML PEN SQ SCH (21:00)
[2017-11-23] VITALS (7 sets, daily range): BP systolic 102–137; BP diastolic 70–96
--- NOTE | 2017-11-23 08:10 | Progress Note ---
DATE: November 23, 2017 SUBJECTIVE: Patient is doing significantly better. Decreased cellulitis to the right lower extremity. Cellulitic streak to the dorsal aspect is resolving. Still some swelling of the 4th toe when compared to adjacent toes. OBJECTIVE VITAL SIGNS: Afebrile. Vital signs stable. EXTREMITIES: Negative drainage. Ulceration is healing. Pedal pulses are palpable. ASSESSMENT: Osteomyelitis with grade 2 ulcer, healing with edema of the 4th toe. PLAN: Continue IV antibiotics. Continue offloading. Continue local wound care. Possible discharge date will be Monday. Job#: [id number] [place]
[2017-11-23] MEDS: INSULIN LISPRO 100 UNIT/1 ML 3ML VIAL SQ SCH ×7 (08:11→21:00)
[2017-11-23] MEDS: FAMOTIDINE 20 MG TAB PO SCH ×2 (09:31→17:25)
[2017-11-23] MEDS ORDERED: PIPER-TAZ 3.375 GM 100 ML IV SCH (10:00)
[2017-11-23] MEDS: PIPER-TAZ 3.375 GM 100 ML IV SCH ×3 (10:25→21:25)
[2017-11-23] MEDS: VANCOMYCIN 1GM/NS 250 ML 250 ML IV SCH ×2 (11:30→23:45)
[2017-11-23] MEDS: ENOXAPARIN SOD INJ 40 MG/0.4 ML SYR SC SCH (17:26)
[2017-11-23] MEDS ORDERED: INSULIN DETEMIR 100 UNIT/ML PEN SQ SCH (21:00)
[2017-11-24] MEDS ORDERED: SODIUM CHLORIDE 0.9% 250ML 250 ML ONE (00:43)
[2017-11-24 04:00] VITALS: BP 124/67
[2017-11-24] MEDS: PIPER-TAZ 3.375 GM 100 ML IV SCH ×4 (04:57→21:55)
--- NOTE | 2017-11-24 07:25 | Progress Note ---
DATE: November 24, 2017 SUBJECTIVE: Patient was seen at bedside. Doing better. Decreased pain to the right lower extremity. OBJECTIVE VITALS: Afebrile, pulse rate 102, respirations 19, blood pressure 124/67, O2 saturation 97%. EXTREMITIES: Right lower extremity getting better. Decreased edema. Decreased ascending cellulitis. Ulcerations are healing. Still some edema to the right 4th toe when compared to adjacent toes. ASSESSMENT: Osteomyelitis with a grade 2 ulcer. Doing well with intravenous antibiotics. PLAN: Will continue IV antibiotics. Patient may be discharged tomorrow. Job#: [id number]
[2017-11-24 07:49] VITALS: BP 130/90
[2017-11-24] MEDS: INSULIN LISPRO 100 UNIT/1 ML 3ML VIAL SQ SCH ×7 (08:00→22:14)
[2017-11-24] MEDS: FAMOTIDINE 20 MG TAB PO SCH ×2 (08:30→17:17)
[2017-11-24 09:46] VITALS: BP 130/90
[2017-11-24] MEDS: VANCOMYCIN 1GM/NS 250 ML 250 ML IV SCH ×2 (11:30→23:39)
[2017-11-24 11:45] VITALS: BP 136/93
[2017-11-24 16:41] VITALS: BP 126/88
[2017-11-24] MEDS: ENOXAPARIN SOD INJ 40 MG/0.4 ML SYR SC SCH (17:17)
[2017-11-24 20:00] VITALS: BP 124/86
[2017-11-24] MEDS ORDERED: INSULIN DETEMIR 100 UNIT/ML PEN SQ SCH (21:00)
[2017-11-25] VITALS: BP 120/77
--- NOTE | 2017-11-25 00:27 | Progress Note ---
DATE: November 23, 2017 TIME: 7:50 a.m. OVERNIGHT: No events. REVIEW OF SYSTEMS: Denies any dizziness. PHYSICAL EXAMINATION VITAL SIGNS: Have been reviewed. GENERAL: A tired-appearing man resting in bed. HEENT: Anicteric. CARDIOVASCULAR: Normal S1 and S2. LUNGS: Moderate breath sounds. ABDOMEN: Soft, nontender and nondistended. EXTREMITIES: He has a left 4th digit with edema. Less erythema and tenderness. SKIN: Dry. PSYCHIATRIC: Flat affect. LABS: Reviewed. MEDICATIONS: Reviewed. ASSESSMENT: A 37-year-old man with: 1. Osteomyelitis with Streptococcus viridans and coagulase-negative staphylococcus of the 4th digit of the right foot. 2. Diabetes mellitus, type 1: Hemoglobin A1c 13.1, LDL 104 and triglycerides 154. 3. Hyperlipidemia. 4. Foot pain. 5. Transaminitis. PLAN 1. Continue antibiotics. 2. Continue local wound care. 3. Discharge planning. Job#: [id number] [place]
--- NOTE | 2017-11-25 00:31 | Progress Note ---
DATE: November 24, 2017 TIME: 7:50 a.m. OVERNIGHT: No events. REVIEW OF SYSTEMS: Denies any dizziness. PHYSICAL EXAMINATION VITAL SIGNS: Reviewed. GENERAL: A tired-appearing man resting in bed. HEENT: Anicteric. CARDIOVASCULAR: Normal S1 and S2. LUNGS: Moderate breath sounds. ABDOMEN: Soft, nontender and nondistended. EXTREMITIES: He has a left foot with 4th absent and right 4th digit with edematous. No erythema and tenderness. SKIN: Dry. PSYCHIATRIC: Flat affect. LABS: Reviewed. MEDICATIONS: Reviewed. ASSESSMENT: A 37-year-old man with: 1. Osteomyelitis with Streptococcus viridans and coagulase-negative staphylococcus of the 4th digit of the right foot. 2. Diabetes mellitus, type 1: Hemoglobin A1c 13.1, LDL 104. 3. Hyperlipidemia. 4. Foot pain. 5. Transaminitis. PLAN 1. Continue antibiotics. Continue local wound care. 2. Discharge planning. The patient refuses SNF. Likely, will need to be transitioned home with oral antibiotics. Job#: [id number] [place]
[2017-11-25 04:00] VITALS: BP 123/80
[2017-11-25] MEDS: PIPER-TAZ 3.375 GM 100 ML IV SCH ×2 (04:43→09:36)
[2017-11-25] MEDS: INSULIN LISPRO 100 UNIT/1 ML 3ML VIAL SQ SCH ×4 (07:30→12:24)
[2017-11-25] MEDS ORDERED: Insulin Lispro SQ (07:56)
[2017-11-25] MEDS ORDERED: Insulin Detemir SQ (07:56)
[2017-11-25 07:59] VITALS: BP 111/74
[2017-11-25] MEDS: FAMOTIDINE 20 MG TAB PO SCH (08:30)
[2017-11-25] MEDS: VANCOMYCIN 1GM/NS 250 ML 250 ML IV SCH (11:30)
[2017-11-25 12:01] VITALS: BP 113/82
[2017-11-25] MEDS ORDERED: LEVAQUIN500 MG PO (13:02)
[2017-11-25] MEDS ORDERED: METRONIDAZOLE500 MG PO (13:04)
--- NOTE | 2017-11-25 15:09 | Progress Note ---
DATE: November 25, 2017 SUBJECTIVE: Patient was seen at bedside. Ready to go home. Denies any history of fever, chills, nausea, or vomiting. OBJECTIVE VITAL SIGNS: Afebrile, pulse rate 90, respirations 18, blood pressure 113/82, O2 saturation 95%. EXTREMITIES: Ulcers to the 4th toe, right foot are healed. Decreased edema. Decreased cellulitis with minimal pain upon range of motion. ASSESSMENT: Resolving cellulitis with osteomyelitis with resolving grade 2 ulcerations. PLAN: Okay to be discharged on oral antibiotics. Patient will continue planned prescribed medications to affected areas. The patient to follow up this Monday in the office. Job#: [id number] [place]
== END 2017-11-25 15:45 | DRG 638 ==
LOC: ER 15:48 → ERHOLD 19:13 → EDBEDREQSVC 20:28 → EDBEDREQ 22:41 → MED/SURG2 11-15 15:17
PROVIDERS: ADMIT Internal Medicine; ATTEND Internal Medicine
DX: E10.69 Type 1 diabetes mellitus with other specified complication (principal); L03.115 Cellulitis of right lower limb; M86.171 Other acute osteomyelitis, right ankle and foot; E10.65 Type 1 diabetes mellitus with hyperglycemia; Z79.4 Long term (current) use of insulin; R74.0 Nonspecific elevation of levels of transaminase and lactic acid dehydrogenase [LDH]; E10.42 Type 1 diabetes mellitus with diabetic polyneuropathy; B95.4 Other streptococcus as the cause of diseases classified elsewhere; E78.5 Hyperlipidemia, unspecified; E10.621 Type 1 diabetes mellitus with foot ulcer; L97.512 Non-pressure chronic ulcer of other part of right foot with fat layer exposed
CPT/HCPCS: 36415; 80048; 80053; 80061; 80202; 82948; 83036; 83605; 84439; 84443; 85025; 85651; 86140; 87040; 87071; 87205; 93926; 97139; 99284; J1650; J2543; J3370; J7050

== ENCOUNTER 2019-04-18 13:44 | Emergency (ER) | payer SELFPAY ==
[~2019-04-18] VITALS: Ht 175.3 cm; Wt 70.3 kg
[~2019-04-18 13:44] MED LIST changes: +HUMALOG100 UNIT/1 SQ; +Insulin Detemir SQ; +Insulin Lispro SQ; +LEVAQUIN500 MG PO; +METRONIDAZOLE500 MG PO; +TOUJEO SQ
[2019-04-18] MEDS ORDERED: SODIUM CHLORIDE 0.9% 1000ML 1,000 ML IV STA (14:01)
[2019-04-18] MEDS ORDERED: CLINDAMYCIN PHOS 900MG/ 50ML 50 ML IV ONE (14:15)
[2019-04-18] MEDS ORDERED: INSULIN REGULAR, HUMAN 100 UNIT/1 ML 3ML VIAL IV ONE ×2 (14:30→16:00)
[2019-04-18 14:37] LABS: BASOPHILS % 0.2 % (0.0-1.0); EOSINOPHILS # (AUTO) 0.1 (0.0-0.4); EOSINOPHILS % 0.6 % (0.0-6.0); HEMOGLOBIN 13.7 g/dL (14.0-18.0); LYMPHOCYTES # (AUTO) 1.3 (1.0-3.2); LYMPHOCYTES % 9.7 % (18.0-39.1); MEAN CORPUSCULAR HEMOGLOBIN 27.2 pg (28-32); MEAN CORPUSCULAR HGB CONC 35.1 g/dL (31-35); MEAN CORPUSCULAR VOLUME 77.5 fL (81-99); MONOCYTES # (AUTO) 1.1 (0.2-0.8); MONOCYTES % 7.8 % (4.4-11.3); NEUTROPHILS # (AUTO) 11.1 (2.1-6.9); NEUTROPHILS % 81.3 % (38.7-80.0); PLATELET COUNT 269 x10e3/uL (140-360); RED BLOOD COUNT 5.03 x10e6/uL (4.3-5.7); RED CELL DISTRIBUTION WIDTH 11.9 % (11.7-14.4)
[2019-04-18 14:52] LABS: ANION GAP 17.9 mmol/L (8-16); CALCIUM 9.3 mg/dL (8.4-10.2); CREATININE, SERUM 1.7 mg/dL (0.72-1.25); POTASSIUM 3.9 mmol/L (3.5-5.1)
[2019-04-18 16:51] VITALS: BP 143/87
== END 2019-04-18 17:07 | disposition home or self-care (01) ==
LOC: ER 13:44
DX: R21 Rash and other nonspecific skin eruption (principal); L03.116 Cellulitis of left lower limb; E11.65 Type 2 diabetes mellitus with hyperglycemia
CPT/HCPCS: 36415; 80048; 82948; 85025; 99284; J1817; J7030